=== PATIENT | female | born 1990 | race American Indian/Alaskan Native ===

== ENCOUNTER 2020-06-23 11:58 | Emergency (ER) | payer MEDICAID ==
[2020-06-23 12:26] VITALS: BP 98/62
--- NOTE | 2020-06-23 12:53 | Emergency Department Report ---
ED Female HPI - General Chief complaint: Urogenital-Female Stated complaint: YEAST INFECTION/IRRITATION Time Seen by Provider: 06/23/20 12:13 Source: patient Mode of arrival: Ambulatory Limitations: No Limitations - History of Present Illness Initial comments: 30-year-old female presents to the ER today complaining of vaginal itching and irritation. She states that her symptoms started about 3 weeks ago. She states that she was concerned it was related to the yeast infection and therefore tried [id number] Monistat without much relief. She states that she try to follow-up with her [facility] at [facility] but they are booked until July. She reports associated yellow discharge. She denies any abnormal vaginal bleeding, pelvic pain, abdominal pain, back pain or UTI symptoms. She states that she has not had sexual intercourse since late November 2019. She states that her last menstrual cycle was May 26, 2020 and she is not currently on any control. MD Complaint: other (Vaginal itching and irritation) -: Gradual, week(s) (3) - Related Data Previous Rx's Medication Instructions Recorded Last Taken Type DOXYCYCLINE Hyclate [Vibramycin 100 mg PO Q12HR #14 capsule 06/23/20 Unknown Rx CAP] metroNIDAZOLE [metroNIDAZOLE 1 applic VG QHS 5 Days gel.w.appl 06/23/20 Unknown Rx VAGINAL 0.75% gel] Allergies Allergy/AdvReac Type Severity Reaction Status Date / Time No Known Allergies Allergy Verified 06/23/20 12:23 ED Review of Systems ROS: Stated complaint: YEAST INFECTION/IRRITATION Other details as noted in HPI Comment: All other systems reviewed and negative Gastrointestinal: denies: abdominal pain, nausea, vomiting, diarrhea, constipation, hematemesis, melena Genitourinary: discharge, other (Positive for vaginal irritation). denies: urgency, dysuria, frequency, hematuria, abnormal menses, dyspareunia Musculoskeletal: denies: back pain ED Past Medical Hx - Past Medical History Previous Medical History?: Yes Hx Asthma: Yes - Surgical History Past Surgical History?: No - Social History Smoking Status: Never Smoker Substance Use Type: None - Medications Home Medications: Home Medications Medication Instructions Recorded Confirmed Last Taken Type DOXYCYCLINE Hyclate [Vibramycin 100 mg PO Q12HR #14 capsule 06/23/20 Unknown Rx CAP] metroNIDAZOLE [metroNIDAZOLE 1 applic VG QHS 5 Days gel.w.appl 06/23/20 Unknown Rx VAGINAL 0.75% gel] ED Physical Exam - General Limitations: No Limitations General appearance: alert, in no apparent distress - Head Head exam: Present: atraumatic, normocephalic, normal inspection - Eye Eye exam: Present: normal appearance, PERRL, EOMI Pupils: Present: normal accommodation - Respiratory Respiratory exam: Present: normal lung sounds bilaterally. Absent: respiratory distress - Cardiovascular Cardiovascular Exam: Present: regular rate - GI/Abdominal GI/Abdominal exam: Present: soft. Absent: distended, tenderness, guarding, rebound - External exam: Present: normal external exam Speculum exam: Present: vaginal discharge, cervical discharge (mod yellow; cervix easily friable and bleeds easily ) Bi-manual exam: Absent: cervical motion tendernes, adnexal tenderness, adnexal mass - Extremities Exam Extremities exam: Present: normal inspection - Neurological Exam Neurological exam: Present: alert, oriented X3, CN II-XII intact, normal gait - Psychiatric Psychiatric exam: Present: normal affect, normal mood - Skin Skin exam: Present: intact ED Course Vital Signs 06/23/20 06/23/20 12:23 14:23 Temperature 99.4 F 99.4 F Pulse Rate 83 16 L Respiratory 16 16 Rate Blood Pressure 98/62 Blood Pressure 98/62 [Right] O2 Sat by Pulse 98 Oximetry Critical care attestation.: If time is entered above; I have spent that time in minutes in the direct care of this critically ill patient, excluding procedure time. ED Disposition Clinical Impression: Bacterial vaginosis, UTI (urinary tract infection) Disposition: DC- TO HOME OR SELFCARE Is pt being admited?: No Does the pt Need Aspirin: No Condition: Stable Instructions: Bacterial Vaginosis, Urinary Tract Infection, Adult, Bacterial Vaginosis (ED) Additional Instructions: Take the antibiotics as prescribed. No sexual contact for 7 days. Your partner may also need to be evaluated and treated. Drink lots of water. Follow up with your PCP in 1-2 weeks. Return to ED if symptoms change or worsens. Prescriptions: metroNIDAZOLE [metroNIDAZOLE VAGINAL 0.75% gel] 1 applic VG QHS 5 Days gel.w.appl DOXYCYCLINE Hyclate [Vibramycin CAP] 100 mg PO Q12HR #14 capsule Referrals: [facility] [Provider Group] - 7-10 days Forms: STI Treatment and Prevention Time of Disposition: 14:11
[2020-06-23] MEDS ORDERED: LIDOCAINE-MPF (1%) 10 MG/1 ML VIAL 5 ML INFILTRATI ONE (13:20)
[2020-06-23 13:32] LABS: Bacteria,Urine 1+ /HPF (Negative); Bilirubin,Urine NEG (Negative); Blood,Urine NEG (Negative); Color,Urine Yellow (Yellow); Mucus,Urine 3+ /HPF; Urobilinogen,Urine < 2.0 mg/dL (<2.0)
[2020-06-23 13:39] LABS: HCG Qualitative,Urine TNR (Negative)
== END 2020-06-23 14:17 | disposition home or self-care (01) ==
LOC: ED 11:58
DX: N76.0 Acute vaginitis (principal); B96.89 Other specified bacterial agents as the cause of diseases classified elsewhere; N39.0 Urinary tract infection, site not specified; Z79.899 Other long term (current) drug therapy
CPT/HCPCS: 81001; 81025; 87086; 87210; 87591; 96372; 99283; J0696

== ENCOUNTER 2020-09-06 00:47 | Emergency (ER) | payer MEDICAID | END 2020-09-06 06:00 | disposition left against medical advice (07) | LOC: ED 00:47 | DX: J45.909 Unspecified asthma, uncomplicated (principal); Z53.21 Procedure and treatment not carried out due to patient leaving prior to being seen by health care provider ==

== ENCOUNTER 2020-11-18 15:57 | Emergency (ER) | payer MEDICAID ==
[2020-11-18 17:22] VITALS: BP 99/64
--- NOTE | 2020-11-18 17:28 | Emergency Department Report ---
Blank Doc - Documentation Documentation: 30-year-old female that presents with vaginal itching and burning with some di scharge. 1- This is a initial triage assessment/medical screening only. Full assessment and work-up will be completed once the patient is in proper hospital gown, ED bed and in a private room setting. This initial assessment/diagnostic orders/clinical plan/ treatment(s) is/are subject to change based on pt's health status, clinical progression and re-assessment by fellow clinical providers in the ED. Further treatment and workup at subsequent clinical providers discretion. Patient/guardians urged not to elope from ED as their condition may be serious if not clinically assessed and managed. 2-UA and possible pelvic exam to be performed
[2020-11-18 18:02] LABS: Bacteria,Urine 1+ /HPF (Negative); Bilirubin,Urine NEG (Negative); Blood,Urine SM (Negative); Color,Urine Yellow (Yellow); Mucus,Urine FEW /HPF; Protein,Urine <15 mg/dL mg/dL (Negative); Urobilinogen,Urine < 2.0 mg/dL (<2.0)
[2020-11-18 18:10] LABS: HCG Qualitative,Urine Negative (Negative)
--- NOTE | 2020-11-18 19:11 | Emergency Department Report ---
ED Female HPI - General Chief complaint: Urogenital-Female Stated complaint: Vaginal burning and itching Time Seen by Provider: 11/18/20 17:27 Source: patient, RN notes reviewed, old records reviewed Mode of arrival: Ambulatory Limitations: No Limitations - History of Present Illness Initial comments: During the entire history and physical examination, I am chaperoned by industrial relations manager Chief Minister Ms. Renard Quinones The patient is a 30-year-old female with a past medical history of bacterial vaginosis. She follows with [facility]. The patient presents to the ER today with complaints of vaginal burning and itching. 2 weeks ago, she got her genitals waxed. Shortly thereafter, she developed vaginal discharge. She took a Monistat [id number], which she believes caused worsened discharge and burning, and was told by her GYNECOLOGY TEACHER that she is allergic to this. She denies dysuria. She denies a history of gonorrhea and chlamydia. She [place] es trichomoniasis. Her vaginal burning is intermittent for the past few weeks. It does not radiate anywhere. It does not have exacerbating or relieving factors. She denies additional injuries, and denies additional complaints. MD Complaint: vaginal discharge -: Gradual, week(s) Severity: mild Quality: other (Burning and itching) Consistency: intermittent Improves with: none Worsens with: none Are you Now?: No Associated Symptoms: vaginal discharge. denies: vaginal bleeding, abdominal pain, nausea/vomiting, fever/chills, headaches, loss of appetite, dysuria, hematuria, seizure, shortness of breath, syncope, weakness - Related Data Sexually active: Yes Previous Rx's Medication Instructions Recorded Last Taken Type metroNIDAZOLE [metroNIDAZOLE 1 applic VG QHS 5 Days #5 11/18/20 Unknown Rx VAGINAL 0.75% gel] gel.w.appl Allergies Allergy/AdvReac Type Severity Reaction Status Date / Time No Known Allergies Allergy Verified 06/23/20 12:23 ED Review of Systems ROS: Stated complaint: BAD VAGINAL ITCHING, BURNING W/URINATION Other details as noted in HPI Constitutional: denies: fever Eyes: denies: eye discharge ENT: denies: epistaxis Respiratory: denies: cough Cardiovascular: denies: chest pain Gastrointestinal: denies: abdominal pain Genitourinary: discharge. denies: urgency, dysuria, hematuria Musculoskeletal: denies: back pain Neurological: denies: weakness ED Past Medical Hx - Past Medical History Previous Medical History?: Yes Hx Asthma: Yes - Social History Smoking Status: Never Smoker Substance Use Type: None - Medications Home Medications: Home Medications Medication Instructions Recorded Confirmed Last Taken Type metroNIDAZOLE [metroNIDAZOLE 1 applic VG QHS 5 Days #5 11/18/20 Unknown Rx VAGINAL 0.75% gel] gel.w.appl ED Physical Exam - General Limitations: No Limitations General appearance: alert, in no apparent distress - Head Head exam: Present: atraumatic, normocephalic - Eye Eye exam: Present: normal appearance, EOMI. Absent: nystagmus - ENT ENT exam: Present: normal exam, normal orophraynx, mucous membranes moist, normal external ear exam - Neck Neck exam: Present: normal inspection, full ROM. Absent: tenderness, meningismus - Respiratory Respiratory exam: Present: normal lung sounds bilaterally. Absent: respiratory distress, wheezes, rales, rhonchi, stridor, chest wall tenderness, accessory muscle use, decreased breath sounds, prolonged expiratory - Cardiovascular Cardiovascular Exam: Present: regular rate, normal rhythm, normal heart sounds. Absent: bradycardia, tachycardia, irregular rhythm, systolic murmur, diastolic murmur, rubs, gallop - GI/Abdominal GI/Abdominal exam: Present: soft. Absent: distended, tenderness, guarding, rebound, rigid, pulsatile mass - External exam: Present: erythema. Absent: swelling, lesions, lacerations, bleeding Speculum exam: Present: erythema, vaginal discharge, cervical discharge. Absent: vaginal bleeding, foreign body, tissue, laceration Bi-manual exam: Present: other (Chaperoned by Pinky Quinones) - Extremities Exam Extremities exam: Present: normal inspection, full ROM, other (2+ pulses noted in the bilateral upper and lower extremities. There is no palpable cord. negative Homans sign. Muscular compartments are soft. The pelvis is stable.). Absent: pedal edema, calf tenderness - Back Exam Back exam: Present: normal inspection, full ROM. Absent: tenderness, CVA tenderness (R), CVA tenderness (L), paraspinal tenderness, vertebral tenderness - Neurological Exam Neurological exam: Present: alert, oriented X3, normal gait, other (No facial droop. Tongue midline. Extraocular movements intact bilaterally. Facial sensation intact to light touch in V1, V2, V3 distribution bilaterally. 5 and a 5 strength in 4 extremities. Sensation intact to light touch in 4 extremities.). Absent: motor sensory deficit - Psychiatric Psychiatric exam: Present: normal affect, normal mood - Skin Skin exam: Present: warm, dry, intact, normal color. Absent: rash ED Course Vital Signs 11/18/20 17:20 Temperature 98.6 F Pulse Rate 63 Respiratory 18 Rate Blood Pressure 99/64 [Right] O2 Sat by Pulse 99 Oximetry ED Medical Decision Making - Lab Data Vital Signs 11/18/20 17:20 Temperature 98.6 F Pulse Rate 63 Respiratory 18 Rate Blood Pressure 99/64 [Right] O2 Sat by Pulse 99 Oximetry Vital Signs 11/18/20 17:20 Temperature 98.6 F Pulse Rate 63 Respiratory 18 Rate Blood Pressure 99/64 [Right] O2 Sat by Pulse 99 Oximetry Lab Results 11/18/20 11/18/20 Range/Units 19:42 Unknown POC Glucose 71 (70-105) mg/dL Urine Color Yellow (Yellow) Urine Turbidity Cloudy (Clear) Urine pH 6.0 (5.0-7.0) Ur Specific Point 1.014 (1.003-1.030) Urine Protein <15 mg/dl (Negative) mg/dL Urine Glucose (UA) Neg (Negative) mg/dL Urine Ketones Neg (Negative) mg/dL Urine Blood Sm (Negative) Urine Nitrite Neg (Negative) Urine Bilirubin Neg (Negative) Urine Urobilinogen < 2.0 (<2.0) mg/dL Ur Leukocyte Esterase Lg (Negative) Urine WBC (Auto) 39.0 H (0.0-6.0) /HPF Urine RBC (Auto) 12.0 (0.0-6.0) /HPF U Epithel Cells (Auto) 20.0 H (0-13.0) /HPF Urine Bacteria (Auto) 1+ (Negative) /HPF Urine Mucus Few /HPF Urine Yeast (Budding) 1+ /HPF Urine HCG, Qual Negative (Negative) - Medical Decision Making Differential diagnosis, including but not limited to: Chemical vaginitis, bacterial vaginitis, trichomoniasis Assessment and plan: 30-year-old female with recurrent vaginitis. Accu-Chek within normal limits. Urinalysis contaminated. She denies dysuria and irritative obstructive urinary symptoms to myself. She has a known history of bacterial vaginosis. I suspect a combination of BV, as well as chemical vaginitis, likely secondary to her waxing. Counseled to avoid vaginal waxing. Counseled to wear loosefitting undergarments. Counseled to initiate MetroGel. Avoid alcohol. The patient does not appear to have an emergent medical condition at this time. She may discharge with outpatient follow-up Critical care attestation.: If time is entered above; I have spent that time in minutes in the direct care of this critically ill patient, excluding procedure time. ED Disposition Clinical Impression: Bacterial vaginosis, Vaginitis Disposition: DC- TO HOME OR SELFCARE Is pt being admited?: No Does the pt Need Aspirin: No Condition: Good Instructions: Bacterial Vaginosis (ED), Bacterial Vaginosis, [id number], Vaginitis Additional Instructions: Wet prep today demonstrated the presence of bacterial vaginosis, which may be contributing to the patient's symptoms. Use the metronidazole gel as directed. Do not consume alcohol for the next 10 days. Cultures were sent today, and results will be available in the next 3 to 5 days. Please have a primary care doctor contact the medical records department to obtain culture results. Please follow-up with your GYNECOLOGY TEACHER doctor within the next 2 weeks. Recommend that patient avoid waxing genital/vaginal area. Recommend that patient use gentle soap and water when performing hygiene to feminine/sensitive regions. Recommend that patient wear loose fitting clothing and undergarments. Please return to the emergency room right away with new pain, worsened pain, migration of pain, projectile vomiting, change in mental status, confusion, inability to tolerate liquid feeds, new, worsened or different symptoms not present on the initial emergency room evaluation. Patient may apply warm compresses to the affected area as often as she would like for symptomatic and supportive control. Prescriptions: metroNIDAZOLE [metroNIDAZOLE VAGINAL 0.75% gel] 1 applic VG QHS 5 Days #5 gel.w.appl Referrals: [facility] [Provider Group] - 3-5 Days
== END 2020-11-18 20:45 | disposition home or self-care (01) ==
LOC: ED 15:57
DX: N76.0 Acute vaginitis (principal); B96.89 Other specified bacterial agents as the cause of diseases classified elsewhere; J45.909 Unspecified asthma, uncomplicated; Z79.899 Other long term (current) drug therapy
CPT/HCPCS: 81001; 81025; 82962; 87086; 87210; 87591; 99284